=== PATIENT | male | born 1970 | race Caucasian/White ===

== ENCOUNTER 2017-02-20 16:57 | Observation (INO) ==
--- NOTE | 2017-02-20 17:16 | Emergency Department Note ---
Disposition Clinical Impression: Hypoxia COPD (chronic obstructive pulmonary disease) Qualifiers: COPD type: unspecified COPD Qualified Code(s): J44.9 - Chronic obstructive pulmonary disease, unspecified Disposition: Admitted As Inpatient Condition: Good Referrals: Ernie Leonard MD [Primary Care Provider] - Forms: ED Satisfaction Letter Time of Disposition: 19:25 Fever HPI - General Chief Complaint: ED Fever Stated Complaint: low O2 sat Time Seen by Provider: 02/20/17 17:10 Source: patient, family Limitations: no limitations Nursing Notes Reviewed: Yes Vital Signs Reviewed: Yes - History of Present Illness HPI Narrative: Patient with fever and general malaise seen at the urgent care, have a low pulse ox. A flu swab was done and there was positive for flu a period Pt Subjective Complaint: fever, malaise Onset (ago): [employer] Maximum Temperature Reported: 104 F Temperature Source: oral Associated symptoms: Reports: chills, cough Improves with: nothing Worsens with: nothing Treatments prior to arrival fever: none - Related Data Allergies Allergy/AdvReac Type Severity Reaction Status Date / Time acetaminophen [From Percocet] Allergy Anaphylaxis Verified 02/20/17 17:03 Oxycodone [From Percocet] Allergy Anaphylaxis Verified 02/20/17 17:03 Penicillins Allergy Anaphylaxis Verified 02/20/17 17:03 Constitutional: Denies: fever, chills, weakness, weight change Eyes: Denies: eye pain, eye discharge, vision change ENT ED: Denies: ear pain, throat pain, dental pain, hearing loss, epistaxis, congestion, dysphagia Cardiovascular: Denies: chest pain, palpitations, dyspnea on exertion, edema, syncope Respiratory: Reports: cough, wheezes. Denies: dyspnea, hemoptysis, stridor Gastrointestinal: Denies: abdominal pain, nausea, vomiting, diarrhea, constipation, hematemesis, melena, hematochezia Genitourinary: Denies: urgency, dysuria, frequency, hematuria Musculoskeletal: Denies: back pain, neck pain, arthralgia, myalgia Integumentary: Denies: rash, abrasion, lesions Neurological: Denies: headache, weakness, numbness, paresthesias, confusion, abnormal gait, vertigo Psychiatric: Denies: anxiety, depression, suicidal thoughts, homicidal thoughts , auditory hallucinations, visual hallucinations Endocrine: Denies: fatigue Hematological/Lymphatic: Denies: easy bleeding, easy bruising Allergic/Immunologic: Denies: facial swelling, urticaria Fever PMH - Past Medical History Medical history: Reports: no medical history - Social History Smoking Status: Current every day smoker Alcohol use: Reports: none Drug use: Reports: none Physical Exam - General Limitations: no limitations General appearance: alert, in no apparent distress - Head Head exam: atraumatic, normocephalic, normal inspection - Eye Eye exam: Present: normal appearance, PERRL, EOMI - ENT ENT exam: normal exam, normal oropharynx, mucous membranes moist - Neck Neck exam: Present: normal inspection, full ROM, trachea midline - Chest Chest inspection: Present: normal inspection, symmetric chest wall rise - Respiratory Respiratory exam: Present: respiratory distress, wheezes - Cardiovascular Cardiovascular exam: Present: regular rate, normal rhythm, normal heart sounds - Abdominal Exam Abdominal exam: Present: soft, Non-Tender. Absent: tenderness, distention, guarding, rebound, rigidity - Extremities Exam Extremities exam: Present: normal inspection, full ROM. Absent: tenderness, pedal edema - Expanded Lower Extremity Exam Neurovascular/Tendon exam: Absent: motor deficit, sensory deficit, tendon deficit Gait: observed and normal - Back Exam Back exam: Present: normal inspection, full ROM. Absent: tenderness - Psychiatric Psychiatric exam: Present: normal affect, normal mood - Skin Skin exam: Present: warm, dry, intact, normal color Course - Reevaluation(s) Reevaluation #1: Patient diagnosed with influenza, has history COPD with increasing requirements for oxygen to maintain a sat. Patient was given breathing treatment but continued to drop his sat after stopping the oxygen. Time: 19:24 - Consultations Consultation #1: Discussed withsandeep Hernandez. Time: 19:26 Vital Signs Temperature 102.4 F H 02/20/17 17:03 Pulse Rate 94 02/20/17 17:03 Respiratory Rate 18 02/20/17 17:03 Blood Pressure 166/81 02/20/17 17:03 O2 Sat by Pulse Oximetry 94 L 02/20/17 17:03 Temperature 99.9 F H 02/20/17 19:16 Pulse Rate 100 02/20/17 19:16 Respiratory Rate 16 02/20/17 19:16 Blood Pressure 166/81 02/20/17 17:03 O2 Sat by Pulse Oximetry 94 L 02/20/17 19:16 Oxygen Delivery Oxygen Delivery Nasal Cannula Fever - Lab Data Lab results reviewed: Yes I reviewed the patient's lab results. Result diagrams: 02/20/17 17:25 02/20/17 17:25 Lab Results 02/20/17 02/20/17 02/20/17 Range/Units 17:25 17:25 17:25 WBC 7.4 (4.3-11.1) K/mcL RBC 4.70 (4.19-5.50) M/mcL Hgb 14.3 (12.9-16.9) g/dL Hct 41.2 (37.5-50.1) % MCV 87.7 (83.0-100.0) fL MCH 30.4 (28.0-33.3) pg MCHC 34.7 (31.6-35.5) g/dL RDW 13.6 (11.5-14.5) % Plt Count 226 (140-400) K/mcL MPV 8.7 L (9.4-12.4) fL Immature Gran % 0.3 (0-4) % Seg Neutrophils % 84.5 % Lymphocytes % 8.5 % Monocytes % 6.2 % Eosinophils % 0.1 % Basophils % 0.4 % Neutrophils # 6.3 (1.6-8.9) K/mcL Lymphocytes # 0.6 (0.6-4.6) K/mcL Monocytes # 0.5 (0.0-1.3) K/mcL Eosinophils # 0.0 (0.0-0.6) K/mcL Basophils # 0.0 (0.0-0.2) K/mcL Sodium 136 (136-145) mEq/L Potassium 4.2 (3.5-4.5) mEq/L Chloride 104 (98-109) mEq/L Carbon Dioxide 20 (19-29) mEq/L BUN 11 (8-26) mg/dL Creatinine 0.79 (0.72-1.25) mg/dL Est GFR ( Amer) > 60 (> 60) Est GFR (Non-Af Amer) > 60 (> 60) BUN/Creatinine Ratio 14 (6-26) Glucose 97 (70-99) mg/dL Calculated Osmolality 281 (280-300) Calcium 8.6 (8.6-10.8) mg/dL Troponin I 0.01 (0-0.03) ng/mL - Radiology Data Radiology results reviewed: Yes I reviewed the patient's radiology results. Chest X-Ray 02/20/17 17:13 IMPRESSION: No acute cardiopulmonary process D/ / Kofi Adorno MD / Kofi Adorno MD Interpreting Provider: Kofi Adorno MD - EKG Data EKG attestation: Yes I reviewed and interpreted this EKG. EKG shows normal: sinus rhythm Rate: normal Rhythm: NSR Interpretation: no acute changes
[2017-02-20 17:33] LABS: Basophils % 0.4 %; Eosinophils % 0.1 %; Hematocrit 41.2 % (37.5-50.1); Hemoglobin 14.3 g/dL (12.9-16.9); Immature Granulocytes % 0.3 % (0-4); Lymphocytes # 0.6 K/mcL (0.6-4.6); Lymphocytes % 8.5 %; Mean Corpuscular HGB Conc 34.7 g/dL (31.6-35.5); Mean Corpuscular Hemoglobin 30.4 pg (28.0-33.3); Mean Corpuscular Volume 87.7 fL (83.0-100.0); Mean Platelet Volume 8.7 fL (9.4-12.4); Monocytes # 0.5 K/mcL (0.0-1.3); Monocytes % 6.2 %; Neutrophils # 6.3 K/mcL (1.6-8.9); Platelet Count 226 K/mcL (140-400); Red Cell Distribution Width 13.6 % (11.5-14.5); Segmented Neutrophils % 84.5 %
[2017-02-20] MEDS ORDERED: Ipratropium/Albuterol Neb 3 ML IH ONE (17:34)
[2017-02-20] MEDS ORDERED: Ipratropium/Albuterol Neb 3 ML ONE (17:36)
[2017-02-20 17:50] LABS: BUN/Creatinine Ratio 14 (6-26); Blood Urea Nitrogen 11 mg/dL (8-26); Calcium 8.6 mg/dL (8.6-10.8); Carbon Dioxide 20 mEq/L (19-29); Chloride 104 mEq/L (98-109); Glucose 97 mg/dL (70-99); Osmolality,Calculated 281 (280-300); Potassium 4.2 mEq/L (3.5-4.5); Sodium 136 mEq/L (136-145); eGFR For African Americans > 60 (> 60); eGFR For Non-African Americans > 60 (> 60)
[2017-02-20] MEDS ORDERED: Ibuprofen 600 MG TABLET PO ONE (18:51)
--- NOTE | 2017-02-21 02:24 | Internal Med History&Physical ---
Date of Encounter: 02/21/17 Time of Encounter: 02:32 Assessment and Plan (1) Influenza Current visit: Yes Status: Acute . (2) Acute and chronic respiratory failure with hypoxia Current visit: Yes Status: Acute . (3) Heavy cigarette smoker (20-39 per day) Current visit: Yes Status: Acute . (4) COPD (chronic obstructive pulmonary disease) Current visit: Yes Status: Chronic . Qualifiers: COPD type: COPD with acute exacerbation Qualified Code(s): J44.1 - Chronic obstructive pulmonary disease with (acute) exacerbation (5) SIRS due to infectious process with acute organ dysfunction Current visit: Yes Status: Acute . (6) Sepsis Current visit: Yes Status: Acute . Qualifiers: Sepsis type: sepsis due to unspecified organism Qualified Code(s): A41.9 - Sepsis, unspecified organism Internal Medicine - H&P: HPI Chief complaint: Difficulty breathing Admitted From: Emergency Dept Plans for Post Hospital Care: Home History of present illness: Mr. Hill is a 47 year old male with history of hypertension, dyslipidemia, COPD, non-rheumatic aortic insufficiency, mild pulmonary hypertension and long- standing nicotine dependency is admitted to [facility] at referral from urgent care center where the patient was evaluated for a nonproductive cough and generalized malaise and fever and found at influenza swab to be positive for influenza A. Patient denied any significant chest pain abdominal pain upper or lower respiratory complaints beyond cough and audible wheezing and generalized malaise. Temperature was as high as 104 degrees Fahrenheit with chills in the home setting. Nothing seemed to improve his symptoms nothing specifically worsened. He acknowledges sick contacts. He has not received influenza or pneumococcal vaccinations. Vital signs at presentation showed a temperature of 102.4 degrees Fahrenheit. Straight 100 respirations 18 BP 166/ 81 and O2 saturation 94% on 2 L per nasal cannula. WBC 7.4 hemoglobin 14.3 platelets 223,000. MPV 8.7. Differential normal. Metabolic panel normal. Troponin 0.01. Chest x-ray showed no acute or active cardiopulmonary process. EKG showed sinus rhythm with no acute ischemic changes. Preliminary impressions suggest acute influenza A viral syndrome associated acute on chronic hypoxic respiratory failure in a patient with underlying COPD. Systemic inflammatory response syndrome criteria/sepsis criteria present at the time of admission. The patient will undergo further evaluation and treatments. The patient was visited and interviewed and examined. Cumulative laboratory and radiographic data base will be considered and discussed. Pertinent ancillary medical records including ECW and PCI documentation when available was reviewed and considered. Given the patient's presenting concerns, past medical history, clinical findings and symptoms, he is admitted at this time will undergo further evaluation and disposition. Orders were written as per Computerized physician mill order scheduler system.......................................................................... .................... Consultative opinion and will be sought as clinical circumstances justify. Pain management needs will be addressed. Laboratory /radiographic data base will be updated as appropriate. Studies include: Cultures blood urine sputum, pt/inr, aptt, cardiac injury panel, BNP, cpk, metabolic and hematologic panel, magnesium, phosphorus, ionized calcium, thyroid panel, lipid profile, A1c, C-peptide, CRp, sedimentation rate, respiratory infection profile, respiratory virus panel, blood gas, lactic acid, UA, UDS, serologies, etc. Precautions: Aspiration, fall, delirium protocol/surveillance initiated. Telemetry with continuous hemodynamic monitoring and pulse oximetry initiated. Empiric antibiotic coverage: Intravenous doxycycline pending culture data. Tamiflu BID therapy initiated. Special studies: CT/CTA chest, chest x-ray, telemetry, EKG. Pulmonary toilet: Incentive spirometry, aerosol bronchodilator, mucolytic, antitussive, supplemental oxygen. Corticosteroid therapy. CPAP/BiPAP supplemental oxygen deliveryPRN. Aerosol Mucomyst therapyPRN. Fluid and electrolyte repletion efforts will proceed. Careful attention to fluid balance and renal recovery will be emphasized. Avoidance of nephrotoxic exposure and adverse drug drug interaction in the setting of impaired renal function will be monitored closely. Acute coronary syndrome protocol/surveillance initiated. DVT and PUD prophylaxis initiated: PPI therapy, intermittent pneumatic cuffs. Subcutaneous heparin. Early ambulation will be encouraged. Immunization updates recommended. Influenza and pneumococcal vaccinations as part of ongoing preventative healthcare recommendations strongly recommended. Smoking cessation counseling briefly addressed. Patient accepts nicotine substitution during this admission.. Advanced care directive discussion briefly addressed. Patient does not declare any healthcare restrictions at this time. Cardiovascular risk appraisal and cardiovascular risk reduction efforts will be emphasized. Physical /occupational therapy may be counseled to evaluate patient's functional capacity and progressive mobility if circumstances justify. Nutrition/dietary education counseling may be considered as circumstances justify. Outpatient medication schedules will be reviewed, confirmed and facilitated as appropriate. Reconciliation of home treatments including adjustments, substitutions and reintroduction into the treatment regimen will address necessary maintenance therapies for chronic pre-existing medical conditions. Plan of care has been reviewed and discussed in detail with the patient. Questions addressed. Hospital course dictated by clinical findings, treatment response and potential consultative interventions. Patient is a risk for further acute clinical decline due to his findings, chief complaints and comorbid conditions. Condition is serious. Prognosis is guarded. CODE STATUS is full. Past Med Surg Social Fam HX - Past Medical History Source: old records reviewed Medical history: arthritis, COPD, GERD, hyperlipidemia, hypertension, valvular heart disease (Aortic insufficiency. Pulmonary hypertension mild with RVSP 44 mmHg.), other Psychiatric history: anxiety - Past Surgical History Surgical History: non-contributory, other - Social History Smoking Status: Heavy tobacco smoker Packs per day: 2ppd x~30yrs Smokeless Tobacco Status: No Alcohol use: none Drug use: none Occupational status: employed Current living situation: Home, With Family Activity Level: Independent ambulation, Mostly sedentary Recent Out of Country Travel Within the Last 8 Weeks: No Exposure or Possible Exposure to Illness During Travel: No - Family History Mother Adopted: [place]: Zoila Fernández Age: 68 Living Status: Still Living Hx Family Cardiac Disorders: No Hx Family Respiratory Disorders: Yes Hx Family Cancer: No Hx Family GI Disorders: No Hx Family Genitourinary Disorders: No Hx Family Endocrine Disorder: No Hx Family Musculoskeletal Disorders: No Hx Family Neuromuscular Disorders: No Hx Family Neurologic Disorders: Yes Hx Family HEENT Disorders: No Hx Family Autoimmune Disorders: No Hx Family Reproductive Disorders: No Hx Family Psychosocial Disorders: No Internal Medicine - H&P: Meds No Known Home Drugs 02/20/17 [History] Allergies acetaminophen [From Percocet] Allergy (Verified 02/20/17 17:03) Anaphylaxis Oxycodone [From Percocet] Allergy (Verified 02/20/17 17:03) Anaphylaxis Penicillins Allergy (Verified 02/20/17 17:03) Anaphylaxis All Systems PM: A 10-system review of systems was performed and is negative for pertinent findings except as documented above in the HPI. Patient Problems (Last Updated 02/21/17 @ 02:31 by Daniel Vee MD) COPD (chronic obstructive pulmonary disease) (Chronic Medical) J44.9 Hypoxia (Acute Medical) R09.02 Acute and chronic respiratory failure with hypoxia (Acute Medical) J96.21 Heavy cigarette smoker (20-39 per day) (Acute Social Hx) F17.210 Influenza (Acute Medical) J11.1 - Constitutional Constitutional: as per HPI, chills, fatigue, fever(s), malaise, weakness, other , no night sweats - EENT Eyes: as per HPI, no change in vision, no discharge, no pain, no photophobia Ears: as per HPI, no ear discharge, no ear pain, no tinnitus Nose, mouth and throat: as per HPI, no dysphagia, no nasal discharge, no neck pain, no sore throat - Cardiovascular Cardiovascular ROS IM: as per HPI, lightheadedness, no chest pain, no diaphoresis, no dyspnea, no palpitations, no syncope - Respiratory Respiratory: as per HPI, cough, dyspnea, dyspnea on exertion, wheezing, other, no excessive phlegm production - Gastrointestinal Gastrointestinal: as per HPI, no abdominal pain, no diarrhea, no hematemesis, no hematochezia, no melena, no nausea, no vomiting - Genitourinary Genitourinary ROS male: as per HPI - Musculoskeletal Musculoskeletal ROS IM: as per HPI, arthralgias, myalgias, no numbness, no tingling - Integumentary Integumentary IM: as per HPI, no rash, no unusual bruising - Neurological Neurological ROS: as per HPI, no confusion, no convulsions, no focal weakness, no numbness, no tingling, no tremor(s) - Psychiatric Psychiatric: as per HPI - Endocrine Endocrine IM: as per HPI - Hematologic/Lymphatic Hematologic/Lymphatic: as per HPI, no easy bruising - Allergic/Immunologic Allergic/Immunologic: as per HPI - Constitutional Vitals: Temp Pulse Resp BP Pulse Ox 99.8 F H 78 20 136/70 96 02/21/17 00:06 02/21/17 00:06 02/21/17 00:06 02/21/17 00:06 02/21/17 00:06 Vital Signs Temp Pulse Resp BP Pulse Ox 02/21/17 00:06 99.8 F H 78 20 136/70 96 02/20/17 22:00 99.2 F 81 16 156/71 91 L 02/20/17 20:35 99.9 F H 16 166/81 02/20/17 19:16 99.9 F H 100 16 94 L 02/20/17 17:39 18 94 L 02/20/17 17:03 102.4 F H 94 18 166/81 94 L Intake and Output 02/20/17 02/20/17 02/21/17 15:59 23:59 07:59 Other: Weight 178.5 kg Allergies Allergy/AdvReac Type Severity Reaction Status Date / Time acetaminophen [From Percocet] Allergy Anaphylaxis Verified 02/20/17 17:03 Oxycodone [From Percocet] Allergy Anaphylaxis Verified 02/20/17 17:03 Penicillins Allergy Anaphylaxis Verified 02/20/17 17:03 General appearance: Present: mild distress, A&O X 3, morbidly obese, answers questions appropriately - Head Head exam: Present: atraumatic, normocephalic - Eye Eye exam: Present: EOMI, PERRL, conjuntiva pink, sclera anicteric Pupils: Present: normal accommodation, PERRL - ENT ENT exam: Present: mucous membranes moist, normal oropharynx - Neck Neck exam general surgery: Present: full ROM, supple, trachea midline. Absent: lymphadenopathy, nuchal rigidity - Respiratory Respiratory exam: Present: chest wall tenderness, decreased breath sounds, respiratory distress, wheezes. Absent: accessory muscle use, CTAB, rales, rhonchi - Cardiovascular Cardiovascular exam: Present: distant heart sounds, RRR, +S1, +S2. Absent: diastolic murmur, gallop, rubs, systolic murmur - GI/Abdominal GI/Abdominal exam: Present: normal bowel sounds, soft, no peritoneal signs. Absent: distended, tenderness - Extremities Exam Extremities exam: Present: full ROM, warm, radial pulses palpable and symetrical. Absent: calf tenderness, cyanotic, pedal edema - Neurological Exam Neurological exam: Present: alert, CN II-XII intact, oriented X3, no focal deficits. Absent: pronater drift, facial droop, speech deficit - Psychiatric Psychiatric exam: Present: normal affect, normal mood - Skin Skin exam: Present: dry, intact, warm. Absent: petechiae, rash, urticaria, vesicles Internal Med - H&P Results - Labs CBC & Chem 7: 02/20/17 17:25 02/20/17 17:25 Labs: Short CBC 02/20/17 Range/Units 17:25 WBC 7.4 (4.3-11.1) K/mcL Hgb 14.3 (12.9-16.9) g/dL Hct 41.2 (37.5-50.1) % Plt Count 226 (140-400) K/mcL Neutrophils # 6.3 (1.6-8.9) K/mcL BMP 02/20/17 Range/Units 17:25 Sodium 136 (136-145) mEq/L Potassium 4.2 (3.5-4.5) mEq/L Chloride 104 (98-109) mEq/L Carbon Dioxide 20 (19-29) mEq/L BUN 11 (8-26) mg/dL Creatinine 0.79 (0.72-1.25) mg/dL Glucose 97 (70-99) mg/dL Calcium 8.6 (8.6-10.8) mg/dL Cardiac Enzymes 02/20/17 Range/Units 17:25 Troponin I 0.01 (0-0.03) ng/mL Abnormal lab results MPV 8.7 fL (9.4-12.4) L 02/20/17 17:25 Laboratory Last Values WBC 7.4 K/mcL (4.3-11.1) 02/20/17 17:25 RBC 4.70 M/mcL (4.19-5.50) 02/20/17 17:25 Hgb 14.3 g/dL (12.9-16.9) 02/20/17 17:25 Hct 41.2 % (37.5-50.1) 02/20/17 17: MCV 87.7 fL (83.0-100.0) 02/20/17 17: MCH 30.4 pg (28.0-33.3) 02/20/17 17: MCHC 34.7 g/dL (31.6-35.5) 02/20/17 17:25 RDW 13.6 % (11.5-14.5) 02/20/17 17:25 Plt Count 226 K/mcL (140-400) 02/20/17 17:25 MPV 8.7 fL (9.4-12.4) L 02/20/17 17:25 Immature Gran % 0.3 % (0-4) 02/20/17 17:25 Seg Neutrophils % 84.5 % 02/20/17 17:25 Lymphocytes % 8.5 % 02/20/17 17:25 Monocytes % 6.2 % 02/20/17 17:25 Eosinophils % 0.1 % 02/20/17 17: Basophils % 0.4 % 02/20/17 17:25 Neutrophils # 6.3 K/mcL (1.6-8.9) 02/20/17 17: Lymphocytes # 0.6 K/mcL (0.6-4.6) 02/20/17: Monocytes # 0.5 K/mcL (0.0-1.3) 02/20/17 17: Eosinophils # 0.0 K/mcL (0.0-0.6) 02/20/17: Basophils # 0.0 K/mcL (0.0-0.2) 02/20/17 17:25 Sodium 136 mEq/L (136-145) 02/20/17 17:25 Potassium 4.2 mEq/L (3.5-4.5) 02/20/17 17:25 Chloride 104 mEq/L (98-109) 02/20/17 17:25 Carbon Dioxide 20 mEq/L (19-29) 02/20/17 17:25 BUN 11 mg/dL (8-26) 02/20/17 17:25 Creatinine 0.79 mg/dL (0.72-1.25) 02/20/17 17:25 Est GFR ( Amer) > 60 (> 60) 02/20/17 17:25 Est GFR (Non-Af Amer) > 60 (> 60) 02/20/17 17:25 BUN/Creatinine Ratio 14 (6-26) 02/20/17 17:25 Glucose 97 mg/dL (70-99) 02/20/17 17:25 Calculated Osmolality 281 (280-300) 02/20/17 17:25 Calcium 8.6 mg/dL (8.6-10.8) 02/20/17 17:25 Troponin I 0.01 ng/mL (0-0.03) 02/20/17 17:25 - Impressions Chest X-Ray 02/20/17 17:13 IMPRESSION: No acute cardiopulmonary process D/ / Kofi Adorno MD / Kofi Adorno MD Interpreting Provider: Kofi Adorno MD - Attending Attestation Allergies acetaminophen [From Percocet] Allergy (Verified 02/20/17 17:03) Anaphylaxis Oxycodone [From Percocet] Allergy (Verified 02/20/17 17:03) Anaphylaxis Penicillins Allergy (Verified 02/20/17 17:03) Anaphylaxis Home Medications Medication Instructions Recorded Confirmed Type No Known Home Drugs 02/20/17 02/20/17 History I & O 02/18/17 02/19/17 02/20/17 02/21/17 23:59 23:59 23:59 23:59 Weight 178.5 kg Medications Discontinued Medications Albuterol/Ipratropium (Duoneb) 3 ml IH ONCE ONE PRN Reason: Protocol Stop: 02/20/17 17:35 Last Admin: 02/20/17 17:37 Dose: 3 ml Albuterol/Ipratropium (Duoneb) Confirm Administered Dose 3 ml .ROUTE .STK-MED ONE Stop: 02/20/17 17:37 Ibuprofen (Motrin) 600 mg PO ONCE ONE PRN Reason: Protocol Stop: 02/20/17 18:52 Last Admin: 02/20/17 19:43 Dose: 600 mg Oseltamivir Phosphate (Tamiflu) 75 mg PO ONCE ONE Stop: 02/20/17 17:18 Last Admin: 02/20/17 17:33 Dose: 75 mg Nursing Notes 02/21/17 00:14 Nurse Note by Gerardo Gilbert Pt refuses non-slip socks Initialized on 02/21/17 00:14 - END OF NOTE Orders 02/20/17 17:13 XR chest 1V portable [XR] Stat Mode Of Transportation: Ambulatory Reason For Exam: Positive flu a cough low pulse ox Order Doctor: Cecilio Moise Exam Performed At:: [facility] 03/30/17 17:17 Oseltamivir [Tamiflu] 75 mg PO ONCE ONE 02/20/17 17:25 Basic Metabolic Panel Stat Comment: Specimen: Send someone from the department to collect Complete Blood Count [HEME] Stat Comment: Specimen: Send someone from the department to collect Troponin I Stat Comment: Specimen: Send someone from the department to collect 02/20/17 17:34 Ipratropium/Albuterol Neb [Duoneb] 3 ml IH ONCE ONE 02/20/17 17:36 Ipratropium/Albuterol Neb [Duoneb] 3 ml .ROUTE .STK-MED ONE 02/20/17 18:18 ECG 12 lead ECG [ECG] Stat Mode Of Transportation: Ambulatory Reason For Exam: Preop EKG Exam Performed At:: [facility] 02/20/17 18:19 12 lead ECG assessment [RC] NOW 02/20/17 18:51 Ibuprofen [Motrin] 600 mg PO ONCE ONE 02/20/17 19:[address] Stat Comment: Reason for Visit: COPD, hypoxia, influenza Patient Problems (Last Updated 02/20/17 @ 19:25 by Cecilio Moise MD) COPD (chronic obstructive pulmonary disease) (Acute) Hypoxia (Acute) Vital Signs Temp Pulse Resp BP Pulse Ox 02/21/17 00:06 99.8 F H 78 20 136/70 96 02/20/17 22:00 99.2 F 81 16 156/71 91 L 02/20/17 20:35 99.9 F H 16 166/81 02/20/17 19:16 99.9 F H 100 16 94 L 02/20/17 17:39 18 94 L 02/20/17 17:03 102.4 F H 94 18 166/81 94 L Laboratory Results 02/20/17 02/20/17 02/20/17 Range/Units 17:25 17:25 17:25 WBC 7.4 (4.3-11.1) K/mcL RBC 4.70 (4.19-5.50) M/mcL Hgb 14.3 (12.9-16.9) g/dL Hct 41.2 (37.5-50.1) % MCV 87.7 (83.0-100.0) fL MCH 30.4 (28.0-33.3) pg MCHC 34.7 (31.6-35.5) g/dL RDW 13.6 (11.5-14.5) % Plt Count 226 (140-400) K/mcL MPV 8.7 L (9.4-12.4) fL Immature Gran % 0.3 (0-4) % Seg Neutrophils % 84.5 % Lymphocytes % 8.5 % Monocytes % 6.2 % Eosinophils % 0.1 % Basophils % 0.4 % Neutrophils # 6.3 (1.6-8.9) K/mcL Lymphocytes # 0.6 (0.6-4.6) K/mcL Monocytes # 0.5 (0.0-1.3) K/mcL Eosinophils # 0.0 (0.0-0.6) K/mcL Basophils # 0.0 (0.0-0.2) K/mcL Sodium 136 (136-145) mEq/L Potassium 4.2 (3.5-4.5) mEq/L Chloride 104 (98-109) mEq/L Carbon Dioxide 20 (19-29) mEq/L BUN 11 (8-26) mg/dL Creatinine 0.79 (0.72-1.25) mg/dL Est GFR ( Amer) > 60 (> 60) Est GFR (Non-Af Amer) > 60 (> 60) BUN/Creatinine Ratio 14 (6-26) Glucose 97 (70-99) mg/dL Calculated Osmolality 281 (280-300) Calcium 8.6 (8.6-10.8) mg/dL Troponin I 0.01 (0-0.03) ng/mL Assessments/Treatments 12 lead ECG assessment Start: 02/20/17 18: 19 Freq: NOW Status: Complete Document 02/20/17 18:34 JB (Rec: 02/20/17 18:35 [facility] [id number]) EKG Time EKG Completed 18:33 EKG performed by [facility] EKTom shown to and signed by Dr. Moise ED Discharge Assessment Start: 02/20/17 17: 02 Freq: Status: Active Document 02/20/17 20:35 CRS (Rec: 02/20/17 20:49 CR[place] [id number]) ED Discharge Assessment ED Discharge Disposition Admitted ED Condition on Discharge Fair Med Rec/Patient Pharmacy Completed? Yes Admitted to 3B Bed assigned 16 Transported by scale technician Transported with oxygen IV pulse oximetry Report given to Nurse Care transferred to (name/credentials) Dennis Information relayed patient's care treatments medications given condition recent/anticipated changes Clinical Documentation Summary Provided Yes Discharge Comment patient taken to floor by EDT. Temperature (97.6 F-99.6 F) 99.9 F H Pain Scale 0 Pain Scale Used Standard (1-10) Blood Pressure (mm Hg) 166/81 Heart rate 100 Respiratory Rate (breaths/min) 16 Oxygen Delivery Nasal Cannula Oxygen Saturation 94 Critical Care Minutes 0 ED Fever Assessment Start: 02/20/17 17: 02 Freq: Status: Complete Document 02/20/17 17:13 JB (Rec: 02/20/17 17:15 JB [id number]) Fever Assessment Sepsis Infection Criteria Present none Sepsis SIRS Criteria none Sepsis Screen No Definite Risk Sepsis Action Taken no action required Symptoms/Complaint Fever Cough Onset yesterday Maximum Temperature 104.8 F Temperature Source Oral Context Sick Contacts Improves With Nothing Worsens With Nothing Associated Symptoms Chills Myalgias Treatment Prior to Arrival Ibuprofen Level Of Consciousness Awake Alert Patient Orientation Person Place Time Name Age Date of Day of Month Day of Week Month Year Time of Day Respiratory Depth Normal Respiratory Effort Normal for Patient Respiratory Pattern Regular Oxygen Delivery Method Room Air Throughout Breath Sounds Diminished Nausea/Vomiting Presence None Fall Precautions Acute Start: 02/20/17 22: 00 Freq: Q12H Status: Active Document 02/20/17 22:15 AEM (Rec: 02/20/17 22:50 AEM [id number]) [facility] Fall Risk Assessment Tool Age less than60 years age (0 points) Fall History No falls within last 6 months (0 points) Elimination, Bowel, and Urine N/A (0 pts) Medications: Includes HEALTH INFORMATION TECH/opiates, On 1 high fall risk drug (3 antivulsants, ant-hypertensives, points) diuretics, hypnotics, Patient Care Equipment: Any equipment One present (1 point) that tethers patient (e.g. IV infusions, chest tube, indwelling Mobility N/A (0 points) Cognition N/A (0 points) Total Fall Risk Score 4 Fall Risk Category Low Risk (0-5) Fall Risk Interventions Low Risk Interventions Bed in lowest position Top side rails up x 2 Secure brake on bed Use properly fitting non-skid footwear Call light and frequently needed objects within reach Encourage patients/families to call for assistance when needed Fall education including risk assessment, injury risk and routine/ Inspect environment for safety and communication risk Supervise and assist with toileting/ADLs as needed Family History-Meaningful Use Start: 02/20/17 22: 00 Freq: .Once Status: Active Document 02/20/17 22:15 AEM (Rec: 02/20/17 22:50 [id number] Family History-Meaningful Use Mother Adopted [place] Zoila Fernández Age (years of age) 68 Race Living Status Still Living Hx Family Cardiac Disorders No Hx Family Respiratory Disorders Yes Hx Family Cancer No Hx Family GI Disorders No Hx Family Genitourinary Disorders No Hx Family Endocrine Disorder No Hx Family Musculoskeletal Disorders No Hx Family Neuromuscular Disorders No Hx Family Neurologic Disorders Yes Hx Family HEENT Disorders No Hx Family Autoimmune Disorders No Hx Family Reproductive Disorders No Hx Family Psychosocial Disorders No IV-Invasive Line Management Start: 02/20/17 22: 00 Freq: Q8H Status: Active Document 02/20/17 22:15 AEM (Rec: 02/20/17 22:50 [id number]) IV/Invasive Line Assessment Right Antecubital Reason for Line Insertion/Rationale for Provide Access for IV Insertion Medication(s) Provide Access for Emergency Gauge (gauge) 18 IV Catheter Type Peripheral IV Site Observation Patent Dressing Applied Transparent Dressing Dry/Intact Line Care Saline Flush P-Locked Labs drawn from Line* No Document 02/21/17 00:13 AEM (Rec: 02/21/17 00:14 AEM [id number]) IV/Invasive Line Assessment Right Antecubital Reason for Line Insertion/Rationale for Provide Access for IV Insertion Medication(s) Provide Access for Emergency Gauge (gauge) 18 IV Catheter Type Peripheral IV Site Observation Patent Dressing Applied Transparent Dressing Dry/Intact Line Care P-Locked Labs drawn from Line* No Measure weight Start: 02/20/17 22: 00 Freq: Status: Active Document 02/20/17 22:00 TMM (Rec: 02/20/17 22:02 [id number] Height and Weight Height 1.75 m Weight 178.5 kg Weight Measurement Method Built in [facility] Body Mass Index (BMI) 58.07 BMI Classification Extreme Obesity Obesity Class III Observation Admission Assessment Start: 02/20/17 22: 00 Freq: .once Status: Active Document 02/20/17 22:15 AEM (Rec: 02/20/17 22:50 AEM [id number]) General Questions Date of Arrival on Unit 02/20/17 Time of Arrival on Unit 20:30 Admitted From Emergency Dept Chief Complaint SOB, Positive Flu Swab History Provided By Patient Orientation To Call Light Bed Phone TV Bathroom Smoking Policy Visiting Hours Procedures ID Bracelet On Emergency Contact Name Kati Hill Relationship to Patient Spouse Bands applied ID band Allergy band Patient Health Portal Patient was provided information on Yes accessing patient portal Patient Requests Portal Enrollment No Reason No Portal Enrollment Patient Declines Advance Directives Advance Directives No Advance Directives Information Provided Yes Advance Directives on File No Patient Rights Copy of Rights Given and Verbalizes Yes Understanding Tobacco Free [place]: Copy of S Yes Statement Given and Patient Verbalizes Understanding Communication Ability Primary Language Estonian Preferred Language Estonian Carpenter General Required No Ability to Follow Directions Excellent Able to Read No Able to Write No Communication Tools None Learning Preferences Discussion Hearing Ability Normal Visual Assistive Devices None Pain Assessment Do You Have Any Ongoing (Chronic) Pain Yes Problems What treatment or medications are you none receiving for pain management Educated on Pain Scale Yes Past Medical History Medical history no medical history Male Surgical History non-contributory Additional surgical history knee Surgery, no replacement Psychiatric history no psych history Smoking Status Current every day smoker Packs per day 2 Smokeless Tobacco Status No Alcohol use none Drug use none Occupational status employed Current living situation Home With Family Activity level Independent ambulation Exposure or Possible Exposure to Illness No During Travel Functional Assessment 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 Eating (Feeding) Ability Independent Bathing Ability Independent Upper Body Dressing Ability Independent Lower Body Dressing Ability Independent Ambulation Ability Independent Toileting Ability Independent Bladder Continent Bowel Continent Normal Bowel Pattern Daily Date of Last Known Bowel Movement 02/20/17 Psychosocial Over Age 75 and Lives Alone or Over Age No 81 Potential Need for Follow-up Care (ECF, No Home Health, ECT) Developmentally Disabled or History of No Mental Health Problems Diagnosis with Group Home Need or No Terminal Implications Responsible for Care of Others No Financial Concerns No Suspected Abuse or Neglect No Suicidal or Homicidal Ideation No Oxygen administration Start: 02/20/17 22: 00 Freq: Q12H Status: Active Document 02/20/17 22:15 AEM (Rec: 02/20/17 22:50 AEM [id number]) Oxygen Oxygen S/U/Change Yes Oxygen Delivery Method Nasal Cannula Oxygen Flow Rate (LPM) 3 Patient Belongings Start: 02/20/17 22: 00 Freq: .ONCE Status: Active Document 02/20/17 22:15 AEM (Rec: 02/20/17 22:50 [id number]) Patient Belongings Belongings With Patient on Admission Yes At Bedside Patient Belongings Pants Shirt Shoes Socks Patient Rounding Start: 02/20/17 22: 00 Freq: Q1H Status: Active Document 02/20/17 22:00 TMM (Rec: 02/20/17 22:02 [id number] Hourly Rounding Hourly Rounding Checked for Patient Positioning Patient Personal Items Placed Within Reach Hourly Rounding Completed Yes Patient Awake Is family present? Yes Safety Call Light Within Reach Bed Position Low Phone Within Reach Bed Brake On Side Rails Up X2 Are the Floors Free From Trip Hazards? Yes Is the Room Free From Clutter? Yes Precautions Droplet Precautions Turn and Postion Bedrest No Turn Q 2HR No Document 02/20/17 22:15 AEM (Rec: 02/20/17 22:50 AEM [id number]) Hourly Rounding Hourly Rounding Checked for Patient Positioning Patient Personal Items Placed Within Reach Checked Patient Pain Level Hourly Rounding Completed Yes Patient Awake Is family present? Yes Safety Call Light Within Reach Bed Position Low Phone Within Reach Side Rails Up X2 Are the Floors Free From Trip Hazards? Yes Is the Room Free From Clutter? Yes Precautions Droplet Precautions Turn and Postion Bedrest No Turn Q 2HR No Patient Position Sitting on Side of Bed Head of Bed Position (degrees) 35 Document 02/21/17 00:06 TMM (Rec: 02/21/17 00:12 [id number]) Hourly Rounding Hourly Rounding Checked for Patient Positioning Patient Personal Items Placed Within Reach Hourly Rounding Completed Yes Patient Awake Is family present? No Safety Call Light Within Reach Bed Position Low Phone Within Reach Bed Brake On Side Rails Up X2 Are the Floors Free From Trip Hazards? Yes Is the Room Free From Clutter? Yes Turn and Postion Bedrest No Turn Q 2HR No Document 02/21/17 00:13 AEM (Rec: 02/21/17 00:14 AEM [id number]) Hourly Rounding Hourly Rounding Checked for Patient Positioning Patient Personal Items Placed Within Reach Checked Patient Pain Level Hourly Rounding Completed Yes Patient Awake Is family present? No Safety Call Light Within Reach Bed Position Low Phone Within Reach Bed Brake On Side Rails Up X2 Are the Floors Free From Trip Hazards? Yes Is the Room Free From Clutter? Yes Precautions Droplet Precautions Turn and Postion Bedrest No Turn Q 2HR No Patient Position Right Side Head of Bed Position (degrees) 35 RT Respiratory Medication Delivery Start: 02/20/17 17: 39 Freq: Status: Active Document 02/20/17 17:39 DD (Rec: 02/20/17 17:40 DD [id number]) Respiratory Therapy Pre Assessment SPO2 (95-100 %) 94 L Heart rate 87 Respiratory Rate (breaths/min) 18 Oxygen Delivery Method Nasal Cannula O2 Flow Rate 2 Throughout Breath Sounds Diminished Treatment Modality Nebulizer Therapy Respiratory Medications Duoneb Medication Delivery Device Mask Treatment Tolerance Excellent Initial Aerosol/MDI/DPI* Yes Post RT Medication Delivery Post Heart rate 89 Post Respiratory Rate (breaths/min) 18 Throughout Post Breath Sounds Diminished Inspiratory Wheezing Treatment Outcome Improved Breath Sounds Respiratory Therapy has recognized a No potential need for Home Oxygen Respiratory Therapy has recognized a No potential need for Home BIPAP/CPAP Comment no complications noted Saline lock insertion/management Start: 02/20/17 17: 02 Freq: Status: Complete Document 02/20/17 20:24 CRS (Rec: 02/20/17 20:24 [place] [id number]) IV Insertion/Site Assessment IV Attempt 1 Successful Successful Blood drawn and sent to Lab No Right Antecubital Date of Insertion 02/20/17 Time of Insertion 20:24 Reason for IV Insertion Provide Access for IV Medication(s) Provide Access for Emergency IV Catheter Type Peripheral IV Gauge (gauge) 18 Site Observation Patent Dressing Applied Window Dressing Dry/Intact Patient Tolerance Tolerated Well Sepsis Screening Start: 02/20/17 22: 00 Freq: Q8H Status: Active Document 02/20/17 22:15 AEM (Rec: 02/20/17 22:50 [id number]) Sepsis Screening Sepsis Infection Criteria Present none Sepsis SIRS Criteria none Sepsis Screen No Definite Risk Sepsis Action Taken no action required Skin Risk Assessment Scale Start: 02/20/17 22: 00 Freq: Q12H Status: Active Document 02/20/17 22:15 AEM (Rec: 02/20/17 22:50 AEM [id number]) Skin Risk Assessment Scale Moisture Risk Rarely Moist Sensory Perception No Impairment Activity Risk Walks Frequently Mobility Risk No Limitations Nutrition Risk Adequate Friction & Shear Risk No Apparent Problem Skin Risk Total Score (points) 22 System Review Start: 02/20/17 22: 00 Freq: Q8H Status: Active Document 02/20/17 22:15 AEM (Rec: 02/20/17 22:[address] 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 Strength Equal Push/Pull Equal Numbness/Tingling No Facial Symmetry Symmetrical Cardiovascular Assessment Signs and Symptoms None Heart Sounds S1 & S2 Jugular Vein Distention None Capillary Refill < 3 Seconds Right Radial 2+ Left Radial 2+ Right Dorsalis Pedis 2+ Left Dorsalis Pedis 2+ Mechanical Prophylaxis No Respiratory Assessment Respiratory Symptoms Pain with Cough Dry Cough Chest Congestion Effort Normal for Patient Spontaneous Non-Labored Depth Normal Respiratory Pattern Regular Chest Shape Normal Expansion Symmetrical All Lung [place] Clear Oxygen Delivery Method Nasal Cannula Oxygen Flow Rate (LPM) 3 Cough Description Voluntary Cough Frequency Intermittent Sputum Amount None Gastrointestinal Assessment Abdomen Description Soft Non-Tender 3 or more loose stools, in less than 24 No hours Nausea/Vomiting Presence None All Four Quadrants Active Flatus Presence Present Genitourinary Assessment Genitourinary Symptoms None Bladder Pattern Normal Voiding Method Toilet Bladder Distention None Suprapubic Tenderness with Palpation No Comment: no urine to assess Integumentary Assessment Nail Bed Appearance [place] Temperature Warm Moisture Dry Turgor Normal Color Normal All Pressure Points Assessed Yes Evidence of Incision/Wounds/Breakdown No Mucous membranes moist, pink and intact Yes Oral Cavity Missing Teeth Musculoskeletal Assessment Musculoskeletal Symptoms None Teaching Record Start: 02/20/17 22: 00 Freq: Q12H Status: Active Document 02/20/17 22:15 AEM (Rec: 02/20/17 22:50 [id number]) Teaching Record: General Education Topics Medications Hospital Environment Diet Health Promotion Pertinence smoking Response Verbalize understanding Methods Discussion Recipient Patient Triage Start: 02/20/17 17: 02 Freq: Status: Complete Document 02/20/17 17:03 MAS (Rec: 02/20/17 17:05 [facility] [id number]) Triage Chief Complaint triage ED Fever Patient Stated Complaint fever FRANCISCO 2 Onset (ago) hour(s) Description of Symptoms Patient to ed, sent from family urgent care, reports + flu test. Patient reports fever and cough x2 days. General Appearance alert in no apparent distress Work Related Injury? No Mode of arrival ambulatory Source patient family Limitations no limitations Ebola Risk: Travel/Contact With Anyone No From Affected Area/s Has Patient Experienced Ebola Symptoms No Temperature (97.6 F-99.6 F) 102.4 F H Temperature Source Oral Pulse Rate (beats/min) 94 Respiratory Rate (breaths/min) 18 Blood Pressure (mm Hg) 166/81 O2 Sat by Pulse Oximetry (95-100 %) 94 L Oxygen Delivery Room Air Height 1.75 m Weight 85.275 kg Weight Measurement Method Stated by Patient Pain Scale 5 Pain Scale Used Standard (1-10) Medical history no medical history Female surgical history orthopedic, other Smoking Status Current every day smoker Smokeless Tobacco Status No Alcohol Use none Drug Use none Patient resides with/at Spouse Safety Concerns Feels Safe At This Time Do you currently feel hopless, have No thoughts of self harm, or thoughts of harming others History of fall in last 14 days? No Vital Signs Assessment Start: 02/20/17 17: 02 Freq: Status: Active Document 02/20/17 19:16 [facility] (Rec: 02/20/17 19:17 [facility] [id number]) ED Vital Signs Pain Reported No Pain Reported Pain Scale 0 Pain Scale Used Standard (1-10) Pulse Rate (beats/min) 100 Rhythm Regular Strength Normal Respiratory Rate (breaths/min) 16 Depth Normal Effort Normal for Patient Pulse Oximetry (95-100 %) 94 L Oxygen Delivery Nasal Cannula Oxygen Flow Rate (LPM) 2 Temperature (97.6 F-99.6 F) 99.9 F H Temperature Source Oral Vital Signs Assessment Start: 02/20/17 22: 00 Freq: Q4H Status: Active Document 02/20/17 22:00 TM (Rec: 02/20/17 22:02 TM [id number]) Vital Signs with MEWS Temperature (97.6 F-99.6 F) 99.2 F Temperature Source Oral Pulse Rate (beats/min) 81 Respiratory Rate (breaths/min) 16 Pulse Oximetry (95-100 %) 91 L Oxygen Delivery Nasal Cannula Oxygen Flow Rate (LPM) 3 Blood Pressure (mm Hg) 156/71 Blood Pressure Location Left Arm Source Automatic Cuff Position Supine Neuro Status *recalled from last Alert documentation MEWS Score 1 Document 02/21/17 00:06 TMM (Rec: 02/21/17 00:12 TMM [id number]) Vital Signs with MEWS Temperature (97.6 F-99.6 F) 99.8 F H Temperature Source Oral Pulse Rate (beats/min) 78 Respiratory Rate (breaths/min) 20 Pulse Oximetry (95-100 %) 96 Oxygen Delivery Nasal Cannula Oxygen Flow Rate (LPM) 3 Blood Pressure (mm Hg) 136/70 Blood Pressure Location Left Arm Source Automatic Cuff Position Supine Neuro Status *recalled from last Alert documentation MEWS Score 1 Discharge Information ED Provider: Cecilio Moise Status: Departed Time Seen by Provider: 02/20/17 17:10 Condition: Good Triaged At: 02/20/17 17:03 Emergency Discharge Date/Time: 02/20/17 20:35 Emergency Discharge Disposition: Admitted As Inpatient Clinical Impression COPD (chronic obstructive pulmonary disease) Hypoxia Emergency Discharge Comment: Admit Intervention Last Done ED Fever Assessment 02/20/17 17:13 Query Result Sepsis Infection Criteria Present none Sepsis SIRS Criteria none Sepsis Screen No Definite Risk Sepsis Action Taken no action required Fever Symptoms/Complaint Fever Cough Fever Onset yesterday Fever Maximum Temperature 104.8 F Temperature Source Oral Fever Context Sick Contacts Fever Improves With Nothing Fever Worsens With Nothing Fever Associated Symptoms Chills Myalgias Fever Treatments Prior to Arrival Ibuprofen Level Of Consciousness Awake Alert Patient Orientation Person Place Time Name Age Date of Day of Month Day of Week Month Year Time of Day Respiratory Depth Normal Respiratory Effort Normal for Patient Respiratory Pattern Regular Oxygen Delivery Method Room Air Throughout -Breath Sounds Diminished Nausea/Vomiting Presence None ED Discharge Assessment 02/20/17 20:35 Query Result ED Discharge Disposition Admitted ED Condition on Discharge Fair Med Rec/Patient Phamracy completed? Yes ED Admit to 3B Bed assigned 16 Transported by scale technician Transported with oxygen IV pulse oximetry Report given to Nurse Care transferred to [facility] Information relayed patient's care treatments medications given condition recent/anticipated change Clinical Documentation Summary Provided Yes ED Discharge Comment patient taken to floor by EDT. Temperature 99.9 F Severity scale (1-10) 0 Pain Scale Used Standard (1-10) Blood Pressure 166/81 Heart rate 100 Respiratory Rate 16 Oxygen Delivery Nasal Cannula Pulse Oximetry Reading 94 Critical Care Minutes 0 Observation Discharge Date/Time: Observation Discharge Disposition: Observation Discharge Comment: Instructions: Stand-Alone Forms: Prescriptions: Visit Report - Forms: - Referrals: Radiology Results Chest X-Ray 02/20/17 17:13
[2017-02-21] MEDS ORDERED: Dextromethorphan Polistrx(12h) 30 MG/5 ML UDC PO PRN (02:58)
[2017-02-21] MEDS ORDERED: Ketorolac 30 MG/ML VIAL IVP STA (02:58)
[2017-02-21] MEDS ORDERED: Pantoprazole 40 MG VIAL IVP STA (02:58)
[2017-02-21] MEDS ORDERED: Ibuprofen 400 MG TABLET PO PRN (02:58)
[2017-02-21] MEDS ORDERED: Naloxone 0.4 MG/ML INJ IVP PRN (02:58)
[2017-02-21] MEDS ORDERED: Benzonatate 100 MG CAPSULE PO PRN (02:58)
[2017-02-21] MEDS ORDERED: *HR* Morphine 2 MG/ML SYRINGE IVP PRN (02:58)
[2017-02-21] MEDS ORDERED: Albuterol 2.5 MG/3 ML NEBULIZER IH PRN (02:58)
[2017-02-21] MEDS ORDERED: *HR* Promethazine 25 MG/ML VIAL IVP PRN (02:58)
[2017-02-21] MEDS: 0.9 % Sodium Chloride 1,000 ML IVC SCH ×2 (03:34→21:40)
[2017-02-21] MEDS: Ipratropium/Albuterol Neb 3 ML IH SCH ×4 (04:32→22:52)
[2017-02-21 04:53] LABS: INR 1.2; Prothrombin Time 12.9 Seconds (9.4-12.1)
[2017-02-21 04:56] LABS: Activated Partial Thrombo Time 31.8 Seconds (26.0-36.0); VBG HCO3 24.2 mEq/L (21-27); VBG PH 7.39 pH Units (7.32-7.42)
[2017-02-21 05:07] LABS: Ionized Calcium 1.03 mmol/L (1.15-1.35)
[2017-02-21 05:10] LABS: Adenovirus Not Detected (Not Detect); Bordetella Pertussis Not Detected (Not Detect); Chlamydophila pneumoniae Not Detected (Not Detect); Coronavirus 229E Not Detected (Not Detect); Coronavirus HKU1 Not Detected (Not Detect); Coronavirus NL63 Not Detected (Not Detect); Coronavirus OC43 Not Detected (Not Detect); Human Metapneumovirus Not Detected (Not Detect); Human Rhinovirus/Enterovirus Not Detected (Not Detect); Influenza A Subtype 2009 H1 Not Detected (Not Detect); Influenza A Untypeable Not Detected (Not Detect); Influenza B Not Detected (Not Detect); Mycoplasma pneumoniae Not Detected (Not Detect); Parainfluenza Virus 1 Not Detected (Not Detect); Parainfluenza Virus 2 Not Detected (Not Detect); Parainfluenza Virus 3 Not Detected (Not Detect); Parainfluenza Virus 4 Not Detected (Not Detect); Respiratory Syncytial Virus Not Detected (Not Detect)
[2017-02-21 05:12] LABS: Chol/HDL Ratio 5.6 (0-4.9); Magnesium 2.1 mg/dL (1.6-2.6); Phosphorous 3.2 mg/dL (2.3-4.7)
[2017-02-21 05:13] LABS: Albumin 3.6 g/dL (3.5-5.0); Albumin/Globulin Ratio 1.2 (1.1-2.2); Bilirubin,Direct 0.3 mg/dL (0.0-0.5); Bilirubin,Indirect 0.3 mg/dL (0.0-1.2); Bilirubin,Total 0.6 mg/dL (0.2-1.2); Total Protein 6.6 g/dL (6.0-8.3)
[2017-02-21] MEDS: Doxycycline 100 MG in 0.9 % Sodium Chloride Mini Bag 100 ML IVPB SCH ×2 (05:36→18:03)
[2017-02-21] MEDS: *HR* Enoxaparin 40 MG/0.4 ML SYRINGE SQ SCH (05:37)
[2017-02-21 06:24] LABS: Thyroid Stimulating Hormone 0.711 mcIU/mL (0.350-4.840)
[2017-02-21] MEDS: Nicotine 21 MG PATCH.TD24 TD SCH (08:20)
[2017-02-21] MEDS: Benzonatate 100 MG CAPSULE PO SCH ×3 (08:21→21:37)
[2017-02-21] MEDS: Famotidine 20 MG TABLET PO SCH ×2 (08:21→21:37)
[2017-02-21] MEDS: predniSONE 20 MG TABLET PO SCH (08:21)
--- NOTE | 2017-02-21 08:28 | Pulmonology Consult Note ---
Date of Encounter: 02/21/17 Time of Encounter: 08:28 Assessment and Plan (1) Acute and chronic respiratory failure with hypoxia Current Visit: Yes Status: Acute This is likely secondary to influenza with obstructive airways disease exacerbation At rest does not appear to have oxygen requirement With continued treatment would suspect would not have no oxygen requirement with exertion but we needed to walk test before discharge to confirm this Goal oxygen saturation around 92% (2) COPD suggested by initial evaluation Current Visit: Yes Status: Acute With acute exacerbation Heart a safety has underlying residual asthma has been exacerbated with acute respiratory infection or COPD related to chronic tobacco abusers or combination thereof. Would give enteral steroids 40 mg of prednisone 5 days Recommend DuoNeb's every 2-4 hours as needed currently and would plan on discharging the patient with a short acting bronchodilator such as albuterol We will need follow-up in pulmonary clinic for PFTs and further quantification of underlying lung disease Given absence of symptoms at baseline would not necessarily need to prescribe long-acting agent at this time (3) Influenza Current Visit: Yes Status: Acute Appears to have influenza A Agree with Tamiflu Recommend discontinuation of Levaquin (4) Heavy cigarette smoker (20-39 per day) Current Visit: Yes Status: Acute Smoking cessation encouraged Patient is currently receiving nicotine replacement and Ideally can continue this as outpatient (5) Lung nodules Current Visit: Yes Status: Acute Bilateral lung nodules in the context of bilateral infiltrates and lymphadenopathy as his Spectazole reactive secondary to acute pulmonary infection he does have increased risk for lung malignancy given smoking history I would start with repeating CT scan in 4-6 weeks at discharge with pulmonary follow-up History of Present Illness Consult date: 02/21/17 Requesting physician: Daniel Vee Reason for consult: pneumonia Chief complaint: Shortness of breath History of present illness: This is a very pleasant 47-year-old gentleman who is a 1-2 pack-a-day smoker since the age of 19 who presented to urgent care after complaining of vomiting persistent cough and shortness of breath. Was found to be hypoxemic in the urgent care was sent to the emergency department for further evaluation once in the emergency department a CTA was performed which was negative for filling defect that showed bilateral infiltrates with scattered pulmonary nodules and lymphadenopathy. Patient was noted to be actively wheezing and was treated for COPD exacerbation and was noted be influenza A positive. 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 No exotic pets no recent travel denies sick contacts No personal or family history of lung cancer Denies weight loss hemoptysis or night sweats He does not complain of shortness of breath at baseline Past Med Surg Social Fam HX - Past Medical History Medical history: arthritis, COPD, GERD, hyperlipidemia, hypertension, valvular heart disease (Aortic insufficiency. Pulmonary hypertension mild with RVSP 44 mmHg.), other Psychiatric history: anxiety - Past Surgical History Surgical History: non-contributory, other - Social History Smoking Status: Heavy tobacco smoker Packs per day: 2ppd x~30yrs Smokeless Tobacco Status: No Alcohol use: none Drug use: none - Family History Mother Adopted: Semmes: Zoila Fernández Age: 68 Living Status: Still Living Hx Family Cardiac Disorders: No Hx Family Respiratory Disorders: Yes Hx Family Cancer: No Hx Family GI Disorders: No Hx Family Genitourinary Disorders: No Hx Family Endocrine Disorder: No Hx Family Musculoskeletal Disorders: No Hx Family Neuromuscular Disorders: No Hx Family Neurologic Disorders: Yes Hx Family HEENT Disorders: No Hx Family Autoimmune Disorders: No Hx Family Reproductive Disorders: No Hx Family Psychosocial Disorders: No Medications and Allergies No Known Home Drugs 02/20/17 [History] Allergies acetaminophen [From Percocet] Allergy (Verified 02/20/17 17:03) Anaphylaxis Oxycodone [From Percocet] Allergy (Verified 02/20/17 17:03) Anaphylaxis Penicillins Allergy (Verified 02/20/17 17:03) Anaphylaxis All Systems: A 10-system review of systems was performed and is negative for pertinent findings except as documented above in the HPI. Physical Examination Vital Signs: Vital Signs, Last 4 Hours Temp Pulse Resp BP Pulse Ox 02/21/17 07:42 98.4 F 65 16 125/69 97 02/21/17 05:09 99.6 F 79 18 165/81 92 L 02/21/17 04:32 18 95 General appearance: no acute distress ENT: oropharynx moist Effort: normal Auscultation: bilateral: wheezes (exp wheezing ) Cardiovascular: regular rate and rhythm Gastrointestinal: normoactive bowel sounds Integumentary: normal Extremities: no clubbing Musculoskeletal: no deformities normal mental status, non-focal exam mood appropriate Results - Laboratory Findings CBC and BMP: 02/20/17 17:25 02/20/17 17:25 PT/INR, D-dimer PT 12.9 Seconds (9.4-12.1) H 02/21/17 04:21 Abnormal lab findings: Abnormal lab results MPV 8.7 fL (9.4-12.4) L 02/20/17 17:25 ESR 23 mm/hr (0-10) H 02/21/17 04:21 PT 12.9 Seconds (9.4-12.1) H 02/21/17 04:21 VBG pCO2 40 mmHg (41-51) L 02/21/17 04:21 VBG pO2 150 mmHg (25-40) H 02/21/17 04:21 Ionized Calcium 1.03 mmol/L (1.15-1.35) L 02/21/17 04:21 AST 35 Units/L (5-34) H 02/21/17 04:21 C-Reactive Protein 76 mg/L (Less than 5) H 02/21/17 04:21 LDL Cholesterol, Calc 114 mg/dL (0-99) H 02/21/17 04:21 HDL Cholesterol 27 mg/dL (40-59) L 02/21/17 04:21 Cholesterol/HDL Ratio 5.6 (0-4.9) H 02/21/17 04:21 Influenza A (H3) PCR DETECTED (Not Detect) A 02/21/17 03:45 - Diagnostic Findings Chest x-ray: report reviewed, image reviewed CT scan - chest: report reviewed, image reviewed - Clinical Findings Intake & Output: Intake & Output 02/20/17 02/21/17 02/21/17 23:59 07:59 15:59 Intake Total 100 / 100 Balance 100 / 100 Weight 178.5 kg 178.5 kg Consult Discharge Plan - Plan Referrals: Ernie Leonard MD [Primary Care Provider] -
[2017-02-21 10:10] LABS: Bilirubin,Urine Negative (Negative); Blood,Urine Negative (Negative); Clarity,Urine Clear (Clear); Color,Urine Yellow (Yellow); Glucose,Urine (UA) Normal (Normal); Ketones,Urine Negative (Negative); Leukocyte Esterase,Urine Negative (Negative); Nitrite,Urine Negative (Negative); Protein,Urine Trace mg/dL (Neg-Trace); Specific Gravity,Urine > 1.030 (1.010-1.025); Urobilinogen,Urine Normal (Normal)
[2017-02-21 10:13] LABS: Bacteria,Urine None Seen per hpf (None-Few); Hyaline Casts,Urine None Seen per lpf (None-Few); RBC,Urine 0-3 per hpf (0-3); Squamous Epithelial Cell,Urine Moderate per lpf (None-Few); WBC,Urine 0-3 per hpf (0-3)
--- NOTE | 2017-02-21 11:55 | Electrocardiograph Report ---
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
[2017-02-21 12:26] LABS: Amphetamine Screen,Urine Negative ng/mL (Cutoff=1000); Barbiturate Screen,Urine Negative ng/mL (Cutoff=200); Benzodiazepines Screen,Urine Negative ng/mL (Cutoff=200); Cannabinoid Screen,Urine Negative ng/mL (Cutoff = 50); Cocaine Screen,Urine Negative ng/mL (Cutoff= 300); Opiate Screen,Urine Negative ng/mL (Cutoff=300); Phencyclidine Screen,Urine Negative ng/mL (Cutoff=25)
--- NOTE | 2017-02-21 17:20 | Internal Med Progress Note ---
Date of Encounter: 02/21/17 Time of Encounter: 09:00 - Assessment and plan (1) COPD (chronic obstructive pulmonary disease) Current Visit: Yes Status: Acute Assessment and plan: Patient with a history of COPD. This is most likely been exacerbated by his positive flU. Has been a 2 pack-a-day smoker for multiple years. He has recently cut back to one pack a day. His discussed an interest in quitting. Patient reports a three-day history of nonproductive cough, he states that he has coughed so hard he has vomited. His lungs are clear anteriorly and posteriorly. Patient had a CT angiogram in the emergency department that was negative for PE however he has multiple nodules and adenopathy, malignancy cannot be entirely excluded. He is a patchy heterogenous pulmonary opacity in bilateral upper lobes. With several nodules some calcified. I consulted pulmonology for these results. He will follow-up in 4-6 weeks outpatient. He has no leukocytosis and has been afebrile during admission. Monitor labs Monitor vital signs Supplemental oxygen to maintain sats above 92% DuoNeb's Albuterol treatments when necessary Steroids Doxycycline 100 mg IV every 12 hours Qualifiers: COPD type: COPD with acute exacerbation Qualified Code(s): J44.1 - Chronic obstructive pulmonary disease with (acute) exacerbation (2) Influenza Current Visit: Yes Status: Acute Assessment and plan: Patient presented to the emergency department last night with 3 day history of nonproductive cough, fever, sore throat. His flu swab was positive for flu a. CT results show some adenopathy which could be reactive to either the flu or COPD exacerbation or both. Continue supportive treatment Continue Tamiflu Supplemental oxygen as needed to maintain sats above 92%. Droplet precautions (3) Hypoxia Current Visit: Yes Status: Acute Assessment and plan: Patient has had to use supplemental oxygen to maintain his sats. He does not wear oxygen at home. We will reevaluate again tomorrow. Plan as above (4) Heavy cigarette smoker (20-39 per day) Current Visit: Yes Status: Chronic Assessment and plan: Patient has been a 2 pack-a-day smoker for multiple years. He has recently cut back to about a pack and half a day. He is definitely interested in smoking cessation. He did Chantix unsuccessfully in the past because he did not understand that you had to pick a date to stop smoking. Completed education with him we discussed this for about 5 minutes. He is currently using a patch and would like a Chantix prescription of discharge. Nicoderm patch during admission Chantix Rx for discharge (5) Lung nodules Current Visit: Yes Status: Acute Assessment and plan: Patient presented to the emergency department last night for difficulty breathing and had a CTA in the emergency department. It shows that he has several nodules within the right middle and lower lobes, with some measuring 6 mm within the right middle lobe. His calcified left lower lobe nodule. Due to the nodules and the additional adenopathy malignancy cannot be entirely excluded. Pulmonology was consult. He will need to follow-up in 4-6 weeks for repeat CAT scan. (6) Adenopathy Current Visit: Yes Status: Acute Assessment and plan: Patient has multiple calcified mediastinal lymph nodes in his CTA, due to granulomatous disease. There is enlargement of noncalcified lymph nodes in the meir, subcarinal, prevascular, and paratracheal regions. Follow-up with pulmonology for repeat CT scan in 4-6 weeks - Time Spent With Patient less than 15 minutes - Subjective Interval history: Patient reports 3 day history of nonproductive cough. He says he was at work and was very weak and felt short of breath. He reports coughing so hard that he vomited. He denies rhinorrhea or sore throat, and does report subjective fevers at home. He is requiring supplemental oxygen at 3 L to maintain his sats around 92%. His lungs were clear anteriorly and posteriorly He does not have oxygen at home. He does smoke about a pack a day, is down from about 2 packs a day. He does have a NicoDerm patch on right now and is requesting a Chantix prescription for discharge. I did consult pulmonology regarding his CTA results with adenopathy and pulmonary nodules. He will follow-up for a repeat CAT scan in 4-6 weeks. He denies chest pain. Patient states that he does need to go back to work on Friday I told him we would discuss that tomorrow. - Constitutional Vitals: Temp Pulse Resp BP Pulse Ox 98.1 F 75 16 146/73 93 02/21/17 15:09 02/21/17 15:09 02/21/17 15:09 02/21/17 15:09 02/21/17 15:09 General appearance: Present: mild distress, A&O X 3, morbidly obese, no acute distress, answers questions appropriately - Head Head exam: Present: normal inspection - Eye Eye exam: Present: normal appearance, conjuntiva pink - ENT ENT exam: Present: mucous membranes moist, normal exam, normal oropharynx - Neck Neck exam general surgery: Present: normal inspection. Absent: lymphadenopathy , tenderness - Respiratory Respiratory exam: Present: CTAB. Absent: chest wall tenderness, rales, respiratory distress, rhonchi, stridor, wheezes, tachypnea - Cardiovascular Cardiovascular exam: Present: RRR, +S1, +S2. Absent: diastolic murmur, systolic murmur - GI/Abdominal GI/Abdominal exam: Present: normal bowel sounds, soft. Absent: hepatomegaly, tenderness - Extremities Exam Extremities exam: Present: normal capillary refill, normal inspection, warm, radial pulses palpable and symetrical. Absent: pedal edema, tenderness - Neurological Exam Neurological exam: Present: alert, oriented X3, no focal deficits Internal Medicine: Result - Labs CBC & Chem 7: 02/20/17 17:25 02/20/17 17:25 Labs: Cardiac Enzymes 02/21/17 02/21/17 02/21/17 Range/Units 04:21 10:10 15:53 Troponin I 0.02 0.01 0.00 (0-0.03) ng/mL Liver Function 02/21/17 Range/Units 04:21 Total Bilirubin 0.6 (0.2-1.2) mg/dL Direct Bilirubin 0.3 (0.0-0.5) mg/dL AST 35 H (5-34) Units/L ALT 26 (0-55) Units/L Alkaline Phosphatase 93 (38-126) Units/L Albumin 3.6 (3.5-5.0) g/dL Urine 02/21/17 Range/Units 09:55 Urine Color Yellow (Yellow) Urine Clarity Clear (Clear) Urine pH 6.0 (5.0-8.0) pH Units Ur Specific Union > 1.030 H (1.010-1.025) Urine Protein Trace (Neg-Trace) mg/dL Urine Glucose (UA) Normal (Normal) mg/dL - ABG Interpretation ABG results: PT/INR, D-dimer PT 12.9 Seconds (9.4-12.1) H 02/21/17 04:21 - Impressions Impressions Chest CTA 02/21/17 02:58 IMPRESSION: No findings to suggest pulmonary embolism. Patchy bilateral upper lobe predominant infiltrate as well as several additional scattered pulmonary nodules, likely due to pneumonitis. Mediastinal and hilar adenopathy can be reactive as a consequence. Given the presence of nodules and adenopathy, malignancy cannot be entirely excluded; follow-up to complete resolution is recommended. D/ / Jaya Pratt MD / Jaya Pratt MD Interpreting Provider: Jaya Pratt MD - VTE Documentation of Mechanical Device: Graduated compression elastic hosiery Consult Discharge Plan - Plan Referrals: Ernie Leonard MD [Primary Care Provider] - 03/03/17 1:15 pm
[2017-02-22 04:28] LABS: Hematocrit 39.4 % (37.5-50.1); Immature Granulocytes % 0.3 % (0-4); Mean Corpuscular Hemoglobin 29.9 pg (28.0-33.3); Mean Corpuscular Volume 90.6 fL (83.0-100.0); Mean Platelet Volume 9.2 fL (9.4-12.4); Monocytes % 5.5 %; Platelet Count 222 K/mcL (140-400); Red Blood Count 4.35 M/mcL (4.19-5.50); Red Cell Distribution Width 13.8 % (11.5-14.5)
[2017-02-22 04:29] LABS: Basophils % 0.1 %; Eosinophils % 0.1 %; Lymphocytes # 1.9 K/mcL (0.6-4.6); Monocytes # 0.4 K/mcL (0.0-1.3); Neutrophils # 4.7 K/mcL (1.6-8.9)
[2017-02-22 04:40] LABS: BUN/Creatinine Ratio 19 (6-26); Blood Urea Nitrogen 15 mg/dL (8-26); Carbon Dioxide 20 mEq/L (19-29); Chloride 111 mEq/L (98-109); Glucose 92 mg/dL (70-99); Osmolality,Calculated 292 (280-300); Potassium 3.7 mEq/L (3.5-4.5); Sodium 141 mEq/L (136-145); eGFR For African Americans > 60 (> 60); eGFR For Non-African Americans > 60 (> 60)
[2017-02-22] MEDS: Ipratropium/Albuterol Neb 3 ML IH SCH ×2 (05:29→10:16)
[2017-02-22] MEDS: Doxycycline 100 MG in 0.9 % Sodium Chloride Mini Bag 100 ML IVPB SCH (06:12)
[2017-02-22] MEDS: *HR* Enoxaparin 40 MG/0.4 ML SYRINGE SQ SCH (06:12)
[2017-02-22] MEDS: Famotidine 20 MG TABLET PO SCH (08:13)
[2017-02-22] MEDS: Nicotine 21 MG PATCH.TD24 TD SCH (08:13)
[2017-02-22] MEDS: predniSONE 20 MG TABLET PO SCH (08:13)
[2017-02-22] MEDS: Benzonatate 100 MG CAPSULE PO SCH (08:14)
[2017-02-22 10:48] VITALS: BP 166/75
--- NOTE | 2017-02-22 11:04 | Discharge Summary ---
Date of Encounter: 02/22/17 Time of Encounter: 09:30 - Discharge Diagnosis (1) COPD (chronic obstructive pulmonary disease) Priority: Primary Status: Acute Comments: COPD was most likely exacerbated by the flu. His lungs are clear this morning and he is no longer requiring oxygen to maintain his sats. He was 100% on room air this a.m. Patient does not take any home medications at this time, however I will send him home with an albuterol inhaler, and I will continue his antibiotic and steroid taper at home. Prednisone taper Albuterol inhaler Doxycycline 100mg po bid x 5 days Qualifiers: COPD type: COPD with acute exacerbation Qualified Code(s): J44.1 - Chronic obstructive pulmonary disease with (acute) exacerbation (2) Influenza Priority: Secondary Status: Acute Comments: I discussed infection precautions with pt today. He will continue tamiflu, as well as treat his symptoms at home. He appears to be and says that he feels significantly better today. He has been afebrile and vitals have remained stable. His lungs are clear. Continue Tamiflu at home NSAiDs for fever, aches Hydrate Treat symptoms as needed. (3) Hypoxia Priority: Secondary Status: Resolved Comments: Pt required 02 at 3L to maintain his sats above 93% yesterday. This has resolved and he has been 100% on room air today. Lungs are clear and he is in no distress. (4) Heavy cigarette smoker (20-39 per day) Priority: Secondary Status: Chronic Comments: Patient has been a 1-1/2 pack per day smoker recently. He has been using a NicoDerm patch during his admission. His expressed an interest in smoking cessation. After discussing methods he is chosen Chantix. I will send him home a prescription for this. (5) Lung nodules Priority: Secondary Status: Acute Comments: Per CTA from February 19, patient has several pulmonary nodules in the right middle and lower lobes. He also has a calcified left lower lobe nodule. He has been seen by pulmonology and will need to have a follow-up CT in 4-6 weeks to reevaluate the nodules. (6) Adenopathy Priority: Secondary Status: Acute Comments: Patient has multiple calcified mediastinal lymph nodes in his CTA from February 19. There are non-calcified lymph nodes which are also enlarged in the meir, subcarinal, prevascular, and paratracheal regions. Again he will follow up for repeat CT in 4-6 weeks for reevaluation. (7) SIRS (systemic inflammatory response syndrome) Priority: Secondary Status: Resolved Comments: Pt was admitted initially with SIRS. Fever 104 and tachycardia. He was treated with IV fluids and antibiotics and he required 02 to maintain is oxygen saturation. Resolved. He is no longer requiring 02, he is not tachycardic and his temp is within normal limits. - Discharge Medications Prescriptions: Albuterol Sulfate [Albuterol Inhaler] 2 puff IH Q4H PRN #1 inhaler PRN Reason: Wheezing Doxycycline 100 mg PO BID #10 capsule GuaiFENesin ER [Mucinex] 1,200 mg PO BID PRN #28 tbbp.12hr PRN Reason: Cough Oseltamivir [Tamiflu] 75 mg PO BID #6 capsule PredniSONE 10 mg PO DAILY #23 tablet Varenicline Tartrate [Chantix] 1 each PO DAILY 30 Days Home Medications: Albuterol Sulfate [Albuterol Inhaler] 2 puff IH Q4H PRN #1 inhaler 02/22/17 [Rx] Doxycycline 100 mg PO BID #10 capsule 02/22/17 [Rx] GuaiFENesin ER [Mucinex] 1,200 mg PO BID PRN #28 tbbp.12hr 02/22/17 [Rx] Oseltamivir [Tamiflu] 75 mg PO BID #6 capsule 02/22/17 [Rx] PredniSONE 10 mg PO DAILY #23 tablet 02/22/17 [Rx] Varenicline Tartrate [Chantix] 1 each PO DAILY 30 Days 02/22/17 [Rx] Allergies/Adverse Reactions: Allergies acetaminophen [From Percocet] Allergy (Verified 02/20/17 17:03) Anaphylaxis Oxycodone [From Percocet] Allergy (Verified 02/20/17 17:03) Anaphylaxis Penicillins Allergy (Verified 02/20/17 17:03) Anaphylaxis Procedures/tests Complete & Pending: Procedures Performed prior 72 hours Category Date Time Status CT angio chest [CT] Stat Cat Scan 02/21/17 02:58 Completed Date of admission: 02/20/17 19:54 Primary care physician: Ernie Leonard MD Consults: 02/21/17 02:59 Consult to Nurse Navigator [CONS] Routine Comment: 02/21/17 08:08 Consult to Pulmonology [CONS] Routine Consulting Provider: [facility] Reason for Consult: COPD, CTA adenopathy, infiltrates. Time Notified: 08:10 Call Completed: Yes Discharging clinician: Diane Otoole Anticipated date of discharge: 02/22/17 - Patient Status Disposition: Home, Self-Care Functional capacity at discharge: independent ambulation Overall status at discharge: patient is back to baseline - Discharge Instructions Follow Up With: Ernie Leonard MD [Primary Care Provider] - 03/03/17 1:15 pm Additional Instructions: Please follow up with Dr. Leonard as scheduled on March 03. Please take your medications as directed. Finish your prednisone and antibiotic. If you find that you are having to use your inhaler more than directed, please see your doctor. Treat your flu symptoms with tylenol or motrin for pain and/or fever, make sure you drink plenty of fluids Take your Chantix as directed, stop smoking on Day 7 Follow up with pulmonology for the follow up CT scan and evaluation of the nodules in your lung You may return to work on Friday with light duty only. If you have any other problems or concerns, or if your condition changes, please return for another evaluation. - Diet and Activity Activity: increase activity as tolerated Diet: advance to your usual diet Hospital course: Mr. Hill is a 47 year old male who reports that he has not real medical history, but was admitted to the hospital on the for acute exacerbation of COPD and Flu A. He had a 3 day history of productive cough, fever, sore throat, and dyspnea. He did meet SIRS criteria on admission, as well as requiring supplemental 02 to maintain his oxygen saturation above 90%. Chest CTA in the ED showed several nodules in the RM and RLL ,as well as enlarged lymph nodes in the meir, subcarianl, prevascular, and paratracheal regions. Pulmonology was consulted due to the adenopathy and nodules, pt will follow up with them for a repeat CT in 4-6 weeks. He was treated with Doxycycline IV, Tamiflu, prednisone, and Duonebs in the hospital. I will send him home on a predisone taper, as well as give him an albuterol inhaler, Mucinex, continue his Tamiflu and Doxycylcline po. We discussed smoking cessation at length and he has decided to try Chantix again. He tried it in the past, but did not know that the goal was to pick a day to stop smoking, so he did not. I will send home a prescription for Chantix. Pt is pain free and his 02 sats have been 100% on room air this a.m. He is in no distress and his vitals and labs have been within normal limits. He is appropriate and stable for discharge. Time spent discussing smoking cessation with patient: 3 to 10 minutes - Time Spent with Patient Total time spent providing and/or coordinating discharge services: Less than 30 minutes - Constitutional Vitals: Temp Pulse Resp BP Pulse Ox 98.5 F 72 16 166/75 94 02/22/17 10:45 02/22/17 10:45 02/22/17 10:45 02/22/17 10:45 02/22/17 10:45 General appearance: Present: mild distress, A&O X 3, morbidly obese, no acute distress, answers questions appropriately - Head Head exam: Present: normal inspection - Eye Eye exam: Present: normal appearance, conjuntiva pink - ENT ENT exam: Present: mucous membranes moist, normal exam - Neck Neck exam general surgery: Present: normal inspection. Absent: lymphadenopathy , tenderness - Respiratory Respiratory exam: Present: CTAB. Absent: rales, respiratory distress, rhonchi, stridor, wheezes, tachypnea - Cardiovascular Cardiovascular exam: Present: RRR, +S1, +S2. Absent: diastolic murmur, systolic murmur - GI/Abdominal GI/Abdominal exam: Present: normal bowel sounds, soft. Absent: hepatomegaly, tenderness - Extremities Exam Extremities exam: Present: normal inspection, warm, radial pulses palpable and symetrical. Absent: pedal edema, tenderness - Neurological Exam Neurological exam: Present: alert, oriented X3, no focal deficits, strengths equal and symetr throughout - VTE Documentation of Mechanical Device: Graduated compression elastic hosiery
== END 2017-02-22 12:38 | disposition home or self-care (01) ==
LOC: 3BNU 16:57 → EMEROO 16:57 → 3BNU 20:35
PROVIDERS: ADMIT Internal Medicine; ATTEND Registered Nurse